=== PATIENT | female | born 1965 | race Caucasian/White ===

== ENCOUNTER → 2019-09-29 07:41 | Outpatient (BNVA) | payer MEDICARE, MEDICAID, SELFPAY | PROVIDERS: Visit Provider Specialist | DX: R25.1 Tremor, unspecified (principal); F03.90 Unspecified dementia, unspecified severity, without behavioral disturbance, psychotic disturbance, mood disturbance, and anxiety; F17.210 Nicotine dependence, cigarettes, uncomplicated | CPT/HCPCS: 99213 ==

== ENCOUNTER → 2019-12-15 12:20 | Outpatient (BNVA) | payer MEDICARE, MEDICAID, SELFPAY | PROVIDERS: Visit Provider Specialist | DX: R25.1 Tremor, unspecified (principal); G31.84 Mild cognitive impairment of uncertain or unknown etiology; F17.210 Nicotine dependence, cigarettes, uncomplicated | CPT/HCPCS: 99213 ==

== ENCOUNTER 2020-02-09 15:21 | Outpatient (CLI) | payer OTHER, MEDICAID, SELFPAY ==
--- NOTE | 2020-02-09 15:46 | XR_ITS ---
WS: [id number] Exam: XR shoulder RT min 2V* [id number] Date/Time of Exam: 02/09/2020 3:51 PM Reason For Exam: RIGHT SHOULDER PAIN The projections of the shoulder reveal no fractures, anomalies, soft tissue swelling, or calcificatio ns. There is normal bony alignment. No irregularity of the bony architecture is noted. XR/XR shoulder RT min 2V* [id number] IMPRESSION: Negative right shoulder.
== END 2020-02-09 15:22 | disposition home or self-care (01) ==
LOC: RAD 15:31
PROVIDERS: PCP Nurse Practitioner Family; Visit Provider Nurse Practitioner Family
DX: M25.511 Pain in right shoulder (principal)
CPT/HCPCS: 73030

== ENCOUNTER 2020-10-10 09:08 | Outpatient (CLI) | payer MEDICARE, MEDICAID, SELFPAY ==
--- NOTE | 2020-10-10 09:15 | MM_ITS ---
WS: [id number] DIAGNOSTIC BILATERAL DIGITAL MAMMOGRAM WITH CAD RIGHT breast ultrasound, limited HISTORY: BREAST MASS/LUMP COMPARISON: 08/31/2011 TECHNIQUE: Bilateral craniocaudad, mediolateral oblique, and mediolateral views are submitted. Spot c ompression RIGHT CC. Computer aided detection utilized. Breast composition: There are scattered areas of fibroglandular density. Palpable marker is placed ov er the upper-outer quadrant of the RIGHT breast as indicated by the ordering provider. There is no un derlying mass or distortion. The remaining breast parenchyma similar to the prior examination. RIGHT breast ultrasound, limited. Ultrasound directed to the upper outer quadrant of the RIGHT breast. No abnormality noted in the RIGH T breast in the upper outer quadrant. MM/[place] [id number] IMPRESSION: BI-RADS: 2-Benign FOLLOW UP: 1 Year Follow-up
== END 2020-10-10 09:09 | disposition home or self-care (01) ==
PROVIDERS: PCP Nurse Practitioner Family; Visit Provider Nurse Practitioner Family
DX: N63.11 Unspecified lump in the right breast, upper outer quadrant (principal)
CPT/HCPCS: 76642; 77066

== ENCOUNTER 2021-01-05 10:06 | Outpatient (CLI) | payer MEDICARE, MEDICAID, SELFPAY ==
--- NOTE | 2021-01-05 10:18 | CT_ITS ---
WS: [id number] LDCT LUNG CANCER SCREENING TECHNIQUE: Noncontrast CT of the chest with coronal and sagittal reformatted images. CLINICAL INFORMATION: NICOTINE DEPENDENCE,CIGARETTES COMPARISON: None. DLP: 69.33 mGy.cm DIvol: 1.58 mGy,1.58 mGy,1.[address] scans at [facility] use at least one of these dose optimization techniques: automat ed exposure control; mA and/or kV adjustment per patient size (includes targeted exams where dose is matched to clinical indication); or iterative reconstruction. FINDINGS: Both lungs are well aerated. No acute pulmonary infiltrates. No consolidation or pleural fluid. A few calcified granulomas. Normal caliber thoracic aorta. No mediastinal or hilar lymphadenopathy. No axillary lymphadenopathy. Mild degenerative changes thoracic spine. CT/CT lung screening [id number] IMPRESSION: LUNG-RADS: 1-Negative FOLLOW UP: 12 Month: Continue annual screening with LDCT
== END 2021-01-05 10:07 | disposition home or self-care (01) ==
PROVIDERS: PCP Internal Medicine; Visit Provider Internal Medicine
DX: Z12.2 Encounter for screening for malignant neoplasm of respiratory organs (principal); F17.210 Nicotine dependence, cigarettes, uncomplicated
CPT/HCPCS: 71271

== ENCOUNTER 2021-01-09 12:52 | Outpatient (CLI) | payer MEDICARE, MEDICAID, SELFPAY ==
--- NOTE | 2021-01-09 12:54 | MR_ITS ---
WS: [id number] MRI LEFT SHOULDER HISTORY: PAIN IN LEFT SHOULDER COMPARISON: 06/12/2016 TECHNIQUE: Multiplanar sequences of the shoulder joint are submitted. Mild AC joint osteoarthritic changes. Increased T2 signal through the AC ligament. No widening of the joint space. There is an additional 4 mm osteophyte from the distal undersurface of the acromion cau sing mild subacromial impingement upon the supraspinatus tendon muscle directly over the humeral head . Very small amount of fluid in the subacromial and subdeltoid bursa. Biceps tendon is in normal posi tion. No os acromion. Narrowing of the glenohumeral joint with significant fraying and degenerative changes involving the l abrum. Extensive subchondral cystic changes involving the anterior labrum. There is a small fluid col lection along the anterior labrum may be a paralabral cyst. These are often seen with labral tears. O steophytic ridging around the humeral head is moderate. Mild thickening of the distal supraspinatus t endon. Insertion site tear measuring 5 mm at the supraspinatus tendon insertion. No change. There is no retraction of the tendon. No muscle atrophy or edema. Subchondral cystic changes are noted in the posterior lateral humeral head at the site of the rotator cuff attachment. MR/MR shoulder LT wo con* [id number] IMPRESSION: 1. Mild tendinopathy distal supraspinatus tendon with a very small insertion s ite tear. 2. Subchondral cystic changes involving the anterior inferior glenoid. There i s an additional extraosseous cyst which may be related to a paralabral cyst whi ch is typically associated with labral tears. Degenerative changes noted in the labrum but cannot confirm tear. 3. Mild AC joint arthritis. 4. Mild subacromial impingement secondary to a 4 mm osteophyte from the distal undersurface of the acromion.
== END 2021-01-09 12:53 | disposition home or self-care (01) ==
LOC: RADSHAW 12:53
PROVIDERS: PCP Internal Medicine; Visit Provider Internal Medicine
DX: M25.512 Pain in left shoulder (principal)
CPT/HCPCS: 73221

== ENCOUNTER → 2021-02-14 15:38 | Outpatient (BNVA) | payer MEDICARE, MEDICAID, SELFPAY | PROVIDERS: PCP Internal Medicine; Referring Provider Nurse Practitioner Family; Visit Provider Orthopaedic Surgery | DX: M25.512 Pain in left shoulder (principal); M19.012 Primary osteoarthritis, left shoulder | CPT/HCPCS: 73030 ==

== ENCOUNTER 2021-03-14 13:34 | Outpatient (CLI) | payer MEDICARE, MEDICAID, SELFPAY ==
--- NOTE | 2021-03-14 13:45 | MR_ITS ---
WS: [id number] MRI CERVICAL SPINE NONCONTRAST TECHNIQUE: Sagittal T1, T2 and STIR imaging. Axial T2, gradient, and fiesta imaging. CLINICAL INFORMATION: M25.519 - Pain in unspecified shoulder COMPARISON: None. FINDINGS: Mild cervical curve. No high-grade central canal stenosis. Mild to moderate spondylitic changes. Disc osteophyte complexes worse at C4-C6. Cord signal is normal. C2-C3: Normal. C3-C4: No significant disc bulging. Mild facet arthropathy. Mild right foraminal narrowing. Spinal ca nal is patent. C4-C5: Disc osteophyte complex with endplate ridging. Severe left and mild right bony foraminal narro wing. Spinal canal is patent. Mild facet arthropathy. C5-C6: Disc osteophyte complex with endplate ridging. Severe left and moderate right bony foraminal n arrowing. Mild central canal stenosis. Moderate facet arthropathy. C6-C7: Disc osteophyte complex endplate ridging. Moderate left and no significant right foraminal beny rowing. Mild facet arthropathy. C7-T1: Disc osteophyte complex with endplate ridging. Spinal canal and foramen are patent. Visualized brain stem structures: Small vessel changes in the richard. Prevertebral soft tissues: Normal. MR/MR cervical spin wo con* [id number] IMPRESSION: 1. Moderate spondylitic changes. Disc osteophyte complexes worse at C4-C6. 2. Disc osteophyte complexes with mild central canal stenosis C4-C5 and C5-C6. 3. Multilevel bony foraminal narrowing moderate to severe left C4-5, left C5-C 6 and left C6-C7. This is worse at left C4-C5 and C5-C6. 4. Moderate facet arthropathy C4-C5 and C5-C6.
== END 2021-03-14 13:35 | disposition home or self-care (01) ==
LOC: RADSHAW 13:36
PROVIDERS: PCP Internal Medicine; Visit Provider Orthopaedic Surgery
DX: M25.519 Pain in unspecified shoulder (principal); M25.78 Osteophyte, vertebrae; M48.02 Spinal stenosis, cervical region; M47.812 Spondylosis without myelopathy or radiculopathy, cervical region
CPT/HCPCS: 72141

== ENCOUNTER → 2021-03-23 10:06 | Outpatient (BNVA) | payer MEDICARE, MEDICAID, SELFPAY | PROVIDERS: PCP Internal Medicine; Referring Provider Orthopaedic Surgery; Visit Provider Physician Assistant | DX: M50.30 Other cervical disc degeneration, unspecified cervical region (principal); M50.20 Other cervical disc displacement, unspecified cervical region; M47.22 Other spondylosis with radiculopathy, cervical region | CPT/HCPCS: 72050 ==

== ENCOUNTER → 2021-04-04 08:47 | Outpatient (BNVA) | payer MEDICARE, MEDICAID, SELFPAY | PROVIDERS: PCP Nurse Practitioner Family; Referring Provider Physician Assistant; Visit Provider Anesthesiology Pain Medicine | DX: M50.30 Other cervical disc degeneration, unspecified cervical region (principal); M47.22 Other spondylosis with radiculopathy, cervical region; M47.812 Spondylosis without myelopathy or radiculopathy, cervical region; M79.602 Pain in left arm; F17.200 Nicotine dependence, unspecified, uncomplicated | CPT/HCPCS: 99205 ==

== ENCOUNTER → 2021-04-18 13:01 | Outpatient (BNVA) | payer MEDICARE, MEDICAID, SELFPAY | PROVIDERS: PCP Nurse Practitioner Family; Visit Provider Anesthesiology Pain Medicine | DX: M54.12 Radiculopathy, cervical region (principal) | CPT/HCPCS: 62321; J1100 ==

== ENCOUNTER → 2021-05-03 13:19 | Outpatient (BNVA) | payer MEDICARE, MEDICAID, SELFPAY | PROVIDERS: PCP Nurse Practitioner Family; Visit Provider Anesthesiology Pain Medicine | DX: M47.22 Other spondylosis with radiculopathy, cervical region (principal); M50.30 Other cervical disc degeneration, unspecified cervical region; M47.812 Spondylosis without myelopathy or radiculopathy, cervical region; M79.602 Pain in left arm; Z79.891 Long term (current) use of opiate analgesic | CPT/HCPCS: 99214 ==

== ENCOUNTER → 2021-12-28 09:31 | Outpatient (BNVA) | payer MEDICARE, MEDICAID, SELFPAY | PROVIDERS: PCP Nurse Practitioner Family; Visit Provider Surgery | DX: Z12.11 Encounter for screening for malignant neoplasm of colon (principal) | CPT/HCPCS: 99024 ==

== ENCOUNTER 2022-04-23 07:12 | Outpatient (CLI) | payer MEDICARE, MEDICAID, SELFPAY ==
--- NOTE | 2022-04-23 07:25 | CT_ITS ---
WS: [id number] LDCT LUNG CANCER SCREENING TECHNIQUE: Noncontrast CT of the chest with coronal and sagittal reformatted images. CLINICAL INFORMATION: HX OF TOBACCO USE COMPARISON: CT January 05, 2021 DLP: 77.21 mGy.cm DIvol: Mean CTDIvol: 1.60 (mGy) All CT scans at [facility] use at least one of these dose optimization techniques: automat ed exposure control; mA and/or kV adjustment per patient size (includes targeted exams where dose is matched to clinical indication); or iterative reconstruction. FINDINGS: Normal caliber thoracic aorta. No mediastinal or hilar lymphadenopathy. Small esophageal hiatal herni a. No axillary lymphadenopathy. Mild thoracic curve. Mild thoracic kyphosis. A few calcified granulomas. Focal pleural thickening ronn ng the RIGHT major fissure. CT/CT lung screening [id number] IMPRESSION: LUNG-RADS: 2-Benign Appearance or Behavior FOLLOW UP: 12 Month: Continue annual screening with LDCT
== END 2022-04-23 07:13 | disposition home or self-care (01) ==
LOC: RAD 07:16
PROVIDERS: PCP Nurse Practitioner Family; Visit Provider Family Medicine
DX: Z12.2 Encounter for screening for malignant neoplasm of respiratory organs (principal); Z87.891 Personal history of nicotine dependence
CPT/HCPCS: 71271

== ENCOUNTER 2022-05-03 11:58 | Outpatient (CLI) | payer MEDICARE, MEDICAID, SELFPAY ==
--- NOTE | 2022-05-03 12:05 | MM_ITS ---
WS: [id number] BILATERAL SCREENING DIGITAL TOMOSYNTHESIS MAMMOGRAM WITH CAD HISTORY: SCREENING COMPARISON: 10/10/2020 and 08/31/2011 Bilateral CC and MLO views with tomosynthesis and synthetic mammography submitted. Computer aided det ection analyzed. Breast composition: There are scattered areas of fibroglandular density. No suspicious masses, microc alcifications or architectural distortion. MM/[place] [id number] IMPRESSION: BI-RADS: 1-Negative FOLLOW UP: 1 Year Follow-up
== END 2022-05-03 11:59 | disposition home or self-care (01) ==
LOC: RAD 11:59
PROVIDERS: PCP Nurse Practitioner Family; Visit Provider Nurse Practitioner Family
DX: Z12.31 Encounter for screening mammogram for malignant neoplasm of breast (principal)
CPT/HCPCS: 77063; 77067

== ENCOUNTER 2022-10-20 12:45 | Emergency (ER) | payer MEDICARE, MEDICAID, SELFPAY ==
[2022-10-20 12:49] VITALS: BP 127/84; PULSE 77; RESP 14; O2SAT 96; BMI 19.8
--- NOTE | 2022-10-20 13:12 | XRR_ITS ---
PROCEDURE INFORMATION: Exam: XR Left Hand Exam date and time: 10/20/2022 1:21 PM Age: 57 years old Clinical indication: Injury or trauma; Other: Laceration; Left; Index finger; Additional info: Laceration injury to distal 2nd digit TECHNIQUE: Imaging protocol: Radiologic exam of the left hand. Views: 3 or more views. COMPARISON: No relevant prior studies available. FINDINGS: Bones/joints: No acute fracture or dislocation. Mineralization is normal. Minimal degenerative changes scattered throughout the IP joints. Soft tissues: Distal index finger soft tissue injury. No retained metallic foreign body. XR/XR hand LT min 3V* [id number] IMPRESSION: Distal left index finger soft tissue injury without acute fracture.
--- NOTE | 2022-10-20 13:13 | ED_ITS ---
HPI - Wound/Laceration General: Chief Complaint: Wound/Laceration Stated Complaint: Left pointer finger lac Time Seen by Provider: 10/20/22 13:07 History of Present Illness: Patient is a 57-year-old female who comes to the ED with left index finger laceration. Injury occurred just prior to arrival. Patient says she was butchering some chickens with an old ax. She accidentally cut the distal end of her left index finger. She cut part of the nail and cut into nail bed. Patient is not up-to-date on her tetanus. Associated symptoms: Denies chills, fever(s), nausea or vomiting Review of Systems 2 Const: Denies: fever(s), chills or fatigue Eyes: Denies: change in vision or eye discomfort ENMT: Denies: throat pain, odynophagia, nasal discharge or nasal congestion Card: Denies: chest pain, palpitations, edema, swelling of feet/ankles, dyspnea on exertion or orthopnea Resp: Denies: dyspnea, productive cough or non-productive cough GI: Denies: abdominal pain, nausea, vomiting, diarrhea, constipation or hematochezia : Denies: flank pain, dysuria or hematuria Musc: Reports: extremity pain (Left index finger laceration); Denies: neck pain, back pain or extremity swelling Skin/Breast: Denies: rash or new lesions Neuro: Denies: headache(s), numbness in extremities or weakness in extremities [facility] ED PFSH: Medical History (Updated 10/20/22 @ 13:56 by NURYS Chakraborty) No pertinent family history Surgical History (Updated 10/20/22 @ 13:15 by NURYS Chakraborty) H/O tubal ligation History of hip replacement Family History Grandmother Cancer Mother Hypertension Physical Exam Const: COMMON NORMALS: patient oriented x3 HENMT: COMMON NORMALS: normocephalic HEAD & SCALP: normocephalic MOUTH: Normal oral and palatal mucosa present THROAT: posterior oropharynx normal and uvula midline Neck/C-Spine: COMMON NORMALS: supple GENERAL: Yes normal visual inspection Resp: COMMON NORMALS: normal respiratory effort, No retractions, No use of accessory muscles and clear to auscultation bilaterally AUSCULTATION: clear to auscultation bilaterally Cardio: COMMON NORMALS: regular rate, regular rhythm, S1 normal heart sound present, S2 normal heart sound present, No gallops present (Cardio), No clicks present (Cardio), No murmurs present (Cardio) and Peripheral pulses 2+ throughout RATE: regular rate RHYTHM: regular rhythm HEART SOUNDS: S1 normal heart sound present and S2 normal heart sound present PERIPHERAL PULSES: Peripheral pulses 2+ throughout GI: COMMON NORMALS: Normal to inspection, nondistended, normoactive bowel sounds present, Soft to palpation, non-tender and no masses PALPATION: Yes Soft to palpation : COMMON NORMALS: Yes no CVA tenderness BLADDER/KIDNEY EXAM: Yes no CVA tenderness Back/Pelvis: COMMON NORMALS: no CVA tenderness Extremity: NARRATIVE EXTREMITY EXAM: Left hand?second digit?distal lateral piece of nail avulsed.. Part of distal lateral nailbed avulsion. Minimal bleeding noted. No damage to nail matrix. GENERAL: Yes normal exam except as noted Neuro: COMMON NORMALS: patient oriented x3 GAIT: Yes Normal gait present Skin: GENERAL SKIN EXAM: dry skin Course Vital Signs: Vital signs: Vital Signs Pulse Rate 77 10/20/22 12:49 Respiratory Rate 14 10/20/22 12:49 Blood Pressure 127/84 10/20/22 12:49 Pulse Oximetry 96 10/20/22 12:49 Oxygen Delivery Me thod Room Air 10/20/22 12:49 MDM - Wound/Laceration Medical Decision Making Patient is a 57-year-old female who comes to the ED with left index finger laceration. Injury occurred just prior to arrival. Patient says she was butchering some chickens with an old ax. She accidentally cut the distal end of her left index finger. She cut part of the nail and cut into nail bed. Patient is not up-to-date on her tetanus. Left hand?second digit?distal lateral piece of nail avulsed.. Part of distal lateral nailbed avulsion. Minimal bleeding noted. No damage to nail matrix. Left hand x-ray?no acute fractures noted. Patient was given updated tetanus here in the ED. Her finger was irrigated extensively with normal saline and Betadine. Nail avulsion and nailbed avulsion will need to heal by second intention. I had the nurse apply triple antibiotic ointment on wound and then wrapped it with Vaseline gauze. Patient was discharged home with a prescription for Keflex. She was instructed on how to care for wound. Follow-up with PCP within the next week for reevaluation. Patient understood and agreed with plan. Lab Data Radiology Impressions Hand X-Ray 10/20/22 13:12 IMPRESSION: Distal left index finger soft tissue injury without acute fracture. Discharge Plan Discharge Patient Disposition: Home Clinical Impression: Avulsion of nail of left index finger, Avulsion of nail bed Condition: Stable Prescriptions: New cephalexin 500 mg capsule 500 mg PO Q6H 7 Days Qty: 28 0RF No Action baclofen 10 mg tablet 10 mg PO TID multivitamin Tablet 1 tab PO DAILY duloxetine 40 mg capsule,delayed release(DR/EC) 40 mg PO BID lisinopril-hydrochlorothiazide 20-25 mg tablet 1 tab PO DAILY omeprazole 40 mg capsule,delayed release(DR/EC) 40 mg PO DAILY ascorbate calcium (vitamin C) 500 mg tablet 500 mg PO DAILY amlodipine 10 mg tablet 10 mg PO DAILY propranolol 10 mg tablet 10 mg PO BID peg 3350-electrolytes [Golytely] 236-22.74-6.74 -5.86 gram recon soln 240 ml PO Q10M Qty: 4000 0RF Rx Instructions: until fecal effluent is clear Discharge Orders: Discharge ED (Routine); Ordered 10/20/22 Ordered By: Rich Matthews Referrals: Augusto Rincon NP [Primary Care Provider] - Discharge Diet: Regular Discharge Activity: Limit activity as instructed Patient Instructions: Skin Avulsion, Nail Avulsion (ED) Activity Restrictions/Additional Instructions: Take full course of antibiotics as prescribed. Clean daily with soap and water and then apply triple antibiotic ointment or Vaseline and cover with bandage. Do not submerge finger in any bodies of water such as lakes or [place] until it is completely healed. Watch for signs of infection such as redness, warmth, increased tenderness and puslike drainage. If you see the signs of infection return to the ED, urgent care or PCP for reevaluation. call your PCP to schedule a follow-up appointment for reevaluation and 5 to 7 days. Continue taking all home meds. Follow discharge plans as discussed. You can return to the ED if symptoms worsen. Coding Level of Care Code [employer] Assistant for Farhan Last
[2022-10-20] MEDS: HYDROcodone-acetaminophen 7.5-325 mg Tablet 1 TAB PO (13:24)
[2022-10-20] MEDS: tetanus-dipt-pertussis 0.5 mL SDV IM (13:25)
[2022-10-20] MEDS: neomycin-poly-bacitracin oint 28 gm 1 APPLIC TOPICAL (14:01)
== END 2022-10-20 14:03 | disposition home or self-care (01) ==
PROVIDERS: Emergency Provider Physician Assistant; PCP Nurse Practitioner Family
DX: S61.311A Laceration without foreign body of left index finger with damage to nail, initial encounter (principal); W27.0XXA Contact with workbench tool, initial encounter; Z23 Encounter for immunization
CPT/HCPCS: 73130; 90471; 90715; 99283

== ENCOUNTER 2022-12-07 09:36 | Outpatient (CLI) | payer MEDICARE, MEDICAID, SELFPAY ==
--- NOTE | 2022-12-07 09:44 | XR_ITS ---
WS: [id number] EXAMINATION: XR cervical spine 4-5V [id number] Cervical spine 3 views REASON FOR EXAM: CHRONIC NECK PAIN GREATER THAN 3 MONTHS COMPARISON: 03/23/2021 FINDINGS: There is no sign of acute fracture or subluxation. Vertebral body heights and intervertebral disc sp aces are maintained except for mild narrowing of C5-6 and C6-7. The cervical bony alignment and osseo us densities appear normal. There appears to be normal mobility without spondylolisthesis on the flex ion and extension views. There is upper thoracic kyphosis. There is no prevertebral soft tissue mac e. IMPRESSION: No acute osseous abnormality.
== END 2022-12-07 09:37 | disposition home or self-care (01) ==
LOC: RAD 09:40
PROVIDERS: PCP Nurse Practitioner Family; Visit Provider Family Medicine
DX: G89.29 Other chronic pain (principal); M54.2 Cervicalgia
CPT/HCPCS: 72050

== ENCOUNTER 2023-01-17 09:38 | Outpatient (RCR) | payer MEDICARE, MEDICAID, SELFPAY | END 2023-02-12 23:59 | disposition home or self-care (01) | LOC: SPT 09:38 | PROVIDERS: PCP Family Medicine; Visit Provider Family Medicine | DX: M54.2 Cervicalgia (principal) | CPT/HCPCS: 97110; 97140; 97161; G0283 ==

== ENCOUNTER 2023-02-13 06:00 | Outpatient (RCR) | payer MEDICARE, MEDICAID, SELFPAY | END 2023-02-27 23:59 | disposition home or self-care (01) | LOC: SPT 06:00 | PROVIDERS: PCP Family Medicine; Visit Provider Family Medicine | DX: M54.2 Cervicalgia (principal); G89.29 Other chronic pain | CPT/HCPCS: 97110; 97140; G0283 ==

== ENCOUNTER → 2023-04-04 14:52 | Outpatient (BNVA) | payer MEDICARE, MEDICAID, SELFPAY | PROVIDERS: PCP Family Medicine; Referring Provider Family Medicine; Visit Provider Specialist | DX: G31.84 Mild cognitive impairment of uncertain or unknown etiology (principal); G25.0 Essential tremor | CPT/HCPCS: 96116; 99204 ==

== ENCOUNTER 2023-04-24 12:13 | Outpatient (CLI) | payer MEDICARE, MEDICAID, SELFPAY ==
--- NOTE | 2023-04-24 12:28 | XRR_ITS ---
PROCEDURE INFORMATION: Exam: XR Chest Exam date and time: 04/24/2023 12:51 PM Age: 58 years old Clinical indication: Patient HX: Cough for 3 weeks; Additional info: Subacute cough TECHNIQUE: Imaging protocol: Radiologic exam of the chest. Views: 2 views. COMPARISON: CT lung screening [id number] 04/23/2022 7:41 AM FINDINGS: Lungs: No consolidation. Pleural spaces: No pleural effusion. No pneumothorax. Heart/Mediastinum: No cardiomegaly. Bones/joints: No acute findings. XR/XR chest 2V* [id number] IMPRESSION: No acute findings.
== END 2023-04-24 12:14 | disposition home or self-care (01) ==
LOC: RAD 12:19
PROVIDERS: PCP Family Medicine; Visit Provider Family Medicine
DX: R05.2 Subacute cough (principal)
CPT/HCPCS: 71046

== ENCOUNTER 2023-06-21 14:14 | Outpatient (CLI) | payer MEDICARE, MEDICAID, SELFPAY ==
--- NOTE | 2023-06-21 14:26 | MM_ITS ---
WS: [id number] BILATERAL 3D TOMOSYNTHESIS DIGITAL SCREENING MAMMOGRAPHY WITH CAD CLINICAL INFORMATION: SCREENING HISTORY: Screening mammogram. No current complaints. COMPARISON: 2022 TECHNIQUE: Bilateral CC and MLO views. FINDINGS: Scattered fibroglandular densities bilaterally. No suspicious focal mass, asymmetry, calcifications, or architectural distortion. No evidence of malignancy. Stable dense parenchymal tissue upper outer L EFT breast. IMPRESSION: MM/[place] [id number] BI-RADS: 1-Negative FOLLOW UP: 1 Year Follow-up Recommend return to annual screening mammography.
== END 2023-06-21 14:15 | disposition home or self-care (01) ==
LOC: RAD 14:15
PROVIDERS: PCP Family Medicine; Visit Provider Family Medicine
DX: Z12.31 Encounter for screening mammogram for malignant neoplasm of breast (principal)
CPT/HCPCS: 77063; 77067

== ENCOUNTER 2023-06-26 17:10 | Outpatient (CLI) | payer MEDICARE, MEDICAID, SELFPAY ==
--- NOTE | 2023-06-26 17:31 | CT_ITS ---
WS: [id number] LDCT LUNG CANCER SCREENING HISTORY: NICOTINE DEPENDENCE, CIGARETTES TECHNIQUE: Axial imaging performed from the apices to 1 cm below the costophrenic angles. Coronal and sagittal reformats are submitted with axial MIP series. All CT scans at [facility] use at least one of these dose optimization techniques: automated exposure control; mA and/or kV adjustment per patient size (includes targeted exams where dose is matched to clinical indication); or iterativ e reconstruction. DLP: 46.51 mGy.cm DIvol: Mean CTDIvol: 0.70 (mGy) COMPARISON: 04/23/2022 Diagnostic quality: Satisfactory Lungs: There are few tiny scattered micronodules and pleural tags. Benign granulomata. No new or enla rging mass. No endobronchial lesions. Heart: Normal size heart with no pericardial effusion.. Other findings: No adrenal mass. IMPRESSION: CT/CT lung screening [id number] LUNG-RADS: 2-Benign Appearance or Behavior FOLLOW UP: 12 Month: Continue annual screening with LDCT OTHER FINDINGS (S MODIFIER): None.
== END 2023-06-26 17:11 | disposition home or self-care (01) ==
PROVIDERS: PCP Family Medicine; Visit Provider Family Medicine
DX: Z12.2 Encounter for screening for malignant neoplasm of respiratory organs (principal); F17.210 Nicotine dependence, cigarettes, uncomplicated; R91.8 Other nonspecific abnormal finding of lung field
CPT/HCPCS: 71271

== ENCOUNTER 2023-08-06 12:56 | Outpatient (CLI) | payer MEDICARE, MEDICAID, SELFPAY ==
--- NOTE | 2023-08-06 13:01 | MR_ITS ---
WS: [id number] MRI CERVICAL SPINE NONCONTRAST TECHNIQUE: Sagittal T1, T2 and STIR imaging. Axial T2, gradient, and fiesta imaging. CLINICAL INFORMATION: SPONDYLOSIS W/O MYELOPATHY/CERVICALGIA/MYALGIA COMPARISON: MRI 03/14/2021 FINDINGS: Straightening of the normal cervical lordosis. Slight retrolisthesis C5 on C6. Disc space narrowing w orse at C5-C6 C6-C7 and C7-T1. Slight anterolisthesis T1 on T2. No high-grade central canal stenosis. Cord signal is normal. Small vessel changes in the richard. Alignment is stable compared to 2020 C2-C3: Mild facet arthropathy. Spinal canal and foramen are patent. C3-C4: Moderate facet arthropathy. Uncovertebral joint hypertrophy. Mild LEFT and no significant RIGH T foraminal narrowing. Spinal canal is patent. C4-C5: Mild disc bulge with osteophytic ridging. Mild facet arthropathy. Moderate LEFT and no signifi cant RIGHT foraminal narrowing. C5-C6: Disc osteophyte complex with endplate ridging. Mild central canal stenosis. Severe LEFT and mo derate RIGHT bony foraminal narrowing unchanged compared to previous. Moderate facet arthropathy. C6-C7: Disc osteophyte complex with endplate ridging. Moderate LEFT and no significant RIGHT foramina l narrowing. Moderate facet arthropathy. C7-T1: Mild disc osteophyte complex with endplate ridging. Moderate LEFT and no significant RIGHT for aminal narrowing. This appears progressed compared to previous. Visualized brain stem structures: Normal. Prevertebral soft tissues: Normal. IMPRESSION: 1. Straightening of the normal cervical lordosis. Alignment is unchanged compared to previous. 2. Disc space narrowing worse at C5-C7. 3. Mild central canal stenosis C5-C6 with severe LEFT bony foraminal narrowing is unchanged. 4. Moderate LEFT C4-C5 and LEFT C6-C7 bony foraminal narrowing is unchanged. 5. Moderate LEFT C7-T1 bony foraminal narrowing appears progressed compared to previous. 6. Shallow central protrusions upper thoracic spine at T1-T3 more prominent at T3-T4 with mild centr al canal stenosis appears stable.
== END 2023-08-06 12:57 | disposition home or self-care (01) ==
LOC: RAD 12:56
PROVIDERS: PCP Family Medicine; Visit Provider Nurse Practitioner Acute Care
DX: M47.812 Spondylosis without myelopathy or radiculopathy, cervical region (principal); M48.02 Spinal stenosis, cervical region; M50.21 Other cervical disc displacement, high cervical region
CPT/HCPCS: 72141

== ENCOUNTER → 2023-08-16 08:35 | Outpatient (BNVA) | payer MEDICARE, OTHER, SELFPAY | PROVIDERS: PCP Family Medicine; Visit Provider Specialist | DX: G31.84 Mild cognitive impairment of uncertain or unknown etiology (principal); G25.0 Essential tremor | CPT/HCPCS: 99213 ==

== ENCOUNTER 2024-06-22 10:11 | Outpatient (CLI) | payer BC, MEDICAID, SELFPAY ==
--- NOTE | 2024-06-22 10:18 | MM_ITS ---
WS: [id number] BILATERAL SCREENING DIGITAL TOMOSYNTHESIS MAMMOGRAM WITH CAD HISTORY: SCREENING COMPARISON: 06/21/2023, 05/03/2022, 10/10/2020 Bilateral CC and MLO views with tomosynthesis and synthetic mammography submitted. Computer aided detection analyzed. Breast composition: There are scattered areas of fibroglandular density. No suspicious masses, microcalcifications or architectural distortion. Asymmetry LEFT breast is stable. No new mass or suspicious finding. MM/MM scr BI tomosynthesis [id number] IMPRESSION: BI-RADS: 2 - Benign. FOLLOW UP: 1 Year Follow-up
--- NOTE | 2024-06-22 16:25 | XRR_ITS ---
PROCEDURE INFORMATION: Exam: XR Chest Exam date and time: 06/22/2024 4:39 PM Age: 59 years old Clinical indication: Cough; Additional info: Subacute cough TECHNIQUE: Imaging protocol: Radiologic exam of the chest. Views: 2 views. COMPARISON: CT lung screening [id number] 06/26/2023 5:35 PM FINDINGS: Lungs: Hyperinflation. No focal consolidation. Pleural spaces: No pleural effusion. No pneumothorax. Heart/Mediastinum: No cardiomegaly. Vasculature: Calcified aorta. Bones/joints: Mild levoconvex scoliotic curvature of the upper thoracic spine. XR/XR chest 2V* [id number] IMPRESSION: Query COPD. No focal consolidation.
== END 2024-06-22 10:12 | disposition home or self-care (01) ==
PROVIDERS: PCP Family Medicine; Visit Provider Family Medicine
DX: Z12.31 Encounter for screening mammogram for malignant neoplasm of breast (principal); R05.2 Subacute cough; R92.323 Mammographic fibroglandular density, bilateral breasts; N64.89 Other specified disorders of breast; J98.4 Other disorders of lung; I70.0 Atherosclerosis of aorta; M43.8X4 Other specified deforming dorsopathies, thoracic region
CPT/HCPCS: 71046; 77063; 77067

== ENCOUNTER 2024-07-16 13:03 | Outpatient (CLI) | payer BC, MEDICAID, SELFPAY ==
--- NOTE | 2024-07-16 13:07 | CT_ITS ---
WS: [id number] LDCT LUNG CANCER SCREENING HISTORY: NICOTINE DEPENDENCE,CIGARETTES TECHNIQUE: Axial imaging performed from the apices to 1 cm below the costophrenic angles. Coronal and sagittal reformats are submitted with axial MIP series. All CT scans at [facility] use at least one of these dose optimization techniques: automated exposure control; mA and/or kV adjustment per patient size (includes targeted exams where dose is matched to clinical indication); or iterative reconstruction. DLP: 47.60 mGy.cm DIvol: Mean CTDIvol: 0.80 (mGy) COMPARISON: 06/26/2023 Diagnostic quality: Satisfactory Lungs: Pulmonary hyperinflation. There are a few tiny scattered micronodules and a few small calcified granulomata within the lungs. No mass or nodule or pneumonia. No endobronchial lesions. Heart: Normal size heart with no pericardial effusion.. Other findings: No adenopathy identified. Small hiatal hernia. No adrenal mass. CT/CT lung screening [id number] IMPRESSION: LUNG-RADS: 1-Negative FOLLOW UP: 12 Month: Continue annual screening with LDCT OTHER FINDINGS (S MODIFIER): None.
== END 2024-07-16 13:04 | disposition home or self-care (01) ==
PROVIDERS: PCP Family Medicine; Visit Provider Family Medicine
DX: Z12.2 Encounter for screening for malignant neoplasm of respiratory organs (principal); Z87.891 Personal history of nicotine dependence; R91.8 Other nonspecific abnormal finding of lung field; J84.10 Pulmonary fibrosis, unspecified; K44.9 Diaphragmatic hernia without obstruction or gangrene
CPT/HCPCS: 71271

== ENCOUNTER 2024-10-13 09:19 | Outpatient (CLI) | payer MEDICARE, MEDICAID, SELFPAY ==
--- NOTE | 2024-10-13 09:25 | XR_ITS ---
WS: [id number] XR hip LT 2-3V wo/w pel* [id number] REASON FOR EXAM: L HIP JOINT PAIN FINDINGS: No fracture or focal bone lesion. Mild narrowing of the joint space with moderate subchondral sclerosis and mild osteophytosis of the acetabulum. Moderate osteophytosis of the femoral head. XR/XR hip LT 2-3V wo/w pel* [id number] IMPRESSION: Mild to moderate osteoarthritis of the left hip.
== END 2024-10-13 09:20 | disposition home or self-care (01) ==
PROVIDERS: PCP Family Medicine; Visit Provider Family Medicine
DX: M16.12 Unilateral primary osteoarthritis, left hip (principal); M25.752 Osteophyte, left hip
CPT/HCPCS: 73502

== ENCOUNTER → 2024-11-23 14:33 | Outpatient (BNVA) | payer MEDICARE, MEDICAID, SELFPAY | PROVIDERS: PCP Family Medicine; Visit Provider Nurse Practitioner | DX: M70.62 Trochanteric bursitis, left hip (principal); M16.12 Unilateral primary osteoarthritis, left hip | CPT/HCPCS: 20610; 73502; 99204; J1100; J2795; J3301; J9999 ==